=== PATIENT | male | born 1980 ===

== ENCOUNTER 2021-04-26 14:08 | Emergency (ER) | payer MEDICAID ==
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
== END 2021-04-26 15:36 ==
LOC: JP.ED 14:08
DX: Z02.89 Encounter for other administrative examinations (principal)
CPT/HCPCS: 99283